=== PATIENT | male | born 1985 | race Caucasian/White ===

== ENCOUNTER 2023-11-18 21:35 | Inpatient (IN) | payer OTHER, SELFPAY ==
[2023-11-18 16:30] VITALS: BP 164/77
[2023-11-18] MEDS: TYLENOL 1000 MG PO (16:40)
[2023-11-18 16:48] LABS: % Basophils 0.4 % (0-2); % Eosinophils 0.1 % (0-6); % Immature Granulocytes 0.6 % (0-0.5); % Lymphocytes 9.5 % (20.5-51.1); % Monocytes 8.1 % (1.7-9.3); % Neutrophils 81.3 % (42.2-75.2); Absolute Basophils 0.1 10^3/uL (0-0.2); Absolute Immature Granulocytes 0.1 10^3/uL (0-0.05); Absolute Lymphocytes 1.6 10^3/uL (1.2-3.4); Absolute Monocytes 1.4 10^3/uL (0.1-0.6); Absolute Neutrophils 13.6 10^3/uL (1.4-6.5); Hematocrit 39.8 % (39.0-52.0); Hemoglobin 13.5 g/dL (13.0-18.0); Mean Corp Hgb Conc. 33.9 g/dL (33.0-37.0); Mean Corpuscular Hgb 29.8 pg (27.0-31.0); Mean Corpuscular Volume 87.9 fL (80.0-94.0); Mean Platelet Volume 9.5 fL (7.4-10.4); Nucleated Red Blood Cells % 0 % (-); Platelet Count 233 10^3/uL (130-400); Red Blood Cell Count 4.53 10^6/uL (4.70-6.10); Red Cell Dist. Width 13.1 % (11.5-14.5); White Blood Cell Count 16.7 10^3/uL (4.8-10.8)
[2023-11-18 17:03] LABS: ALT (SGPT) 22 U/L (0-50); AST (SGOT) 28 U/L (17-59); Alkaline Phosphatase 85 U/L (38-126); Blood Urea Nitrogen 13 mg/dl (9-20); Calcium 8.9 mg/dl (8.4-10.2); Carbon Dioxide 27 mmol/L (22-30); Chloride 98 mmol/L (98-107); Glucose 127 mg/dl (70-99); Potassium 3.9 mmol/L (3.5-5.1); Sodium 135 mmol/L (135-145); Total Protein 7.6 g/dl (6.3-8.2); eGFR > 60.00
--- NOTE | 2023-11-18 18:40 | ED.GENMED ---
History of Present Illness
General
Chief Complaint: Skin Problem
Source: patient and spouse
Time Seen by Provider: 11/18/23 18:20
Travel History
Have you had any contact with someone who has COVID-19?: No
Do you have any symptoms of coronavirus? Fever > 100 degrees, chills, cough, shortness of breath, sore throat, loss of taste or smell, muscle aches, or headache?: No
History of Present Illness
History of Present Illness:
This patient is a 38-year-old male presents emergency department with complaints of 'sinus pressure' that he noticed yesterday and just feeling a bit 'off'. When he woke up this morning, he noticed swelling and increasing sense of pressure in his
face particularly on the right side in the mid face extending to the periorbital area. Patient had a telehealth visit and was prescribed Augmentin, he took his first dose and is not due again for several hours. He reports feeling like he is not
getting better. He has fever, chills, sweats. He denies airway complaints such as trouble swallowing, sore throat, difficulty breathing. He also denies chest pain, abdominal pain, nausea, vomiting, dizziness, neck pain. Patient had a dental
cleaning several weeks ago, otherwise no dental intervention/work. He does have a bifrontal headache. He denies pain with eye movements or visual changes.
Past History
Past History
ED Past Medical History: None
ED Past Surgical History: None
Social History
Tobacco: Non-smoker
Alcohol: Occasional
Drug: None
Personal:
Living: with family
Employment: Employed
Phy Exam
Physical Exam
Physical Exam:
GENERAL: Alert , in no apparent distress
EYE: pupils equal and reactive, EOMI, no photophobia, no nystagmus.
NECK: Supple, no significant adenopathy.
ENT: o/p clr, mmm, no trismus/drool, no submental/lower face redness/swelling, no stridor.
CARDIAC: Regular rate and rhythm .
LUNGS: Clear breath sounds bilaterally, no acute respiratory distress, no wheezes/rales/rhonchi
ABDOMEN: Soft, without focal tenderness, no r/g, no cvat
NEUROLOGICAL: Alert and oriented, no focal neuro deficits
SKIN: Warm and dry, skin intact. THere is sts and redness, sl warmth noted at R midface and less so L midface extending to periorbital area and lower forehead on R. No proptoisis, no chemosis, no eye discharge
MUSCULOSKELETAL: No edema, well perfused.
PSYCH: Normal and appropriate interaction.
Course
Orders/Labs/Results
Orders:
Orders
11/18/23 16:38
Acetaminophen [Tylenol] 1,000 mg .ROUTE .STK-MED ONE
11/18/23 16:39
Complete Blood Count/With Diff Urgent
Comprehensive Metabolic Panel Urgent
11/18/23 16:40
Acetaminophen [Tylenol] 1,000 mg PO NOW STA
11/18/23 18:[address] [CT Orbits With Iv Contrast] Urgent
Comment:
Reason For Exam: periorbital cellulitis R
0.9% Sodium Chloride 500 ml [Nss] 500 ml IV BOLUS
11/18/23 19:54
Ketorolac [Toradol] 15 mg IV NOW STA
11/18/23 20:21
CefTRIAXone [Rocephin] 2,000 mg IV NOW STA
Vancomycin 1 Gram/200 ml [Vancocin] 1 gram in 200 ml IV NOW
Abnormal Lab Results
11/18/23
16:39
WBC 16.7 H 10^3/uL
(4.8-10.8)
RBC 4.53 L 10^6/uL
(4.70-6.10)
Abs Immat Gran (auto) 0.1 H 10^3/uL
(0-0.05)
Absolute Neuts (auto) 13.6 H 10^3/uL
(1.4-6.5)
Absolute Monos (auto) 1.4 H 10^3/uL
(0.1-0.6)
Immature Gran % 0.6 H %
(0-0.5)
Neutrophils % 81.3 H %
(42.2-75.2)
Lymphocytes % 9.5 L %
(20.5-51.1)
Glucose 127 H mg/dl
(70-99)
11/18/23 16:39
11/18/23 16:39
Vital Signs
Initial and Last Documented VS:
Initial Vital Signs
Temp Pulse Resp BP Pulse Ox
103 F H 117 18 164/77 97
11/18/23 16:30 11/18/23 16:30 11/18/23 16:30 11/18/23 16:30 11/18/23 16:30
Last Documented Vital Signs
Temp Pulse Resp BP Pulse Ox
103 F H 117 18 129/68 98
11/18/23 16:30 11/18/23 16:30 11/18/23 16:30 11/18/23 19:01 11/18/23 19:02
*Critical Care Note
Total Time (30-74mins, 75-104mins- exclusive of procedures): Not Applicable
Update Note
Update Note:
Patient presents to the Emergency Department with ___facial swelling
Number and Complexity of Problems Addressed at the Encounter
� Chronic conditions affecting care:
� Acute Exacerbation and/or Progression of Chronic Illness:
� Differential Diagnosis includes: But not limited to preseptal cellulitis, septal cellulitis, facial cellulitis, abscess, etc.
Amount and/or Complexity of Data to be Reviewed and Analyzed
� I performed an independent evaluation of and my interpretation is:
EKG:
CT: Preseptal cellulitis, no abscess noted
Xrays:
Laboratory Studies: White blood cell count elevation consistent with infection
Other:
� Review of other/old records reveals:
� Clinical information was obtained by an independent historian: who is bedside
� Prescriptions/Medications Considered but not given:
� Further testing considered but not performed:
Risk of Complications and/or Morbidity or Mortality of Patient Management
� Social determinants of health affecting care:
� Discussion with other providers (PCP, Hospitalists, Consultants, etc):
� Escalation of care including admission/observation vs risk of discharge considered: Case discussed with hospitalist via [place] text aware of diagnosis of preseptal cellulitis and indication for admission. 8:40 PM patient
reexamined, no progression of symptoms, feels better status post Toradol. Discussed with him finding and my recommendation for overnight observation and IV antibiotics which he agrees with. Patient is otherwise without complaint
ED Attending Note
-
Portions of this chart may have been created with voice recognition software.� Occasional wrong word or��sound alike� substitutions may have occurred due to the inherent limitations of voice recognition software.
Discharge Plan
Departure
Patient Disposition: Admit
Date of Disposition: 11/18/23
Time of Disposition: 20:45
Presentation/result/management discussed w/ accepting MD/DO: Hospitalist
Patient with high blood pressure during this ER visit?: Yes
Condition: Fair
Discharge Problem:
Preseptal cellulitis
Prescriptions:
No Action
ibuprofen 200 mg Capsule
400 mg PO Q6H PRN (Reason: mild pain/fever)
diphenhydramine HCl [Benadryl] 25 mg Capsule
50 mg PO DAILY PRN (Reason: swelling)
amoxicillin-pot clavulanate 875-125 mg tablet
1 tab PO BID
Referrals:
Gilbert Singh MD [Family Provider] -
Interventions
Interventions:
*Risk Screen - Suicide Last Done: 11/18/23 16:30
*General Assessment Last Done: 11/18/23 16:30
*Neglect/Abuse Screening Last Done: 11/18/23 16:30
ED- Fall Risk Assessment Last Done: 11/18/23 19:02
*ED COVID-19 Vaccine History Last Done: 11/18/23 19:02
ED-Skin Assessment Last Done: 11/18/23 19:02
[2023-11-18 19:01] VITALS: BP 129/68; BMI 39.2
[2023-11-18] MEDS: NSS 500 IV (19:14)
[2023-11-18] MEDS: TORADOL 15 MG IV (20:06)
[2023-11-18 20:09] VITALS: BP 117/78
[2023-11-18] MEDS: ROCEPHIN 2000 MG IV (20:30)
[2023-11-18] MEDS: VANCOCIN 200 IV ×2 (20:49→22:07)
--- NOTE | 2023-11-18 21:07 | HPS.HSE ---
Family Physician
-
Family Physician: Gilbert Singh
Chief Complaint
-
Facial redness
History of Present Illness
Patient is a pleasant 38 years old with no past medical history who came to the ER with facial pressure, redness, fever which started yesterday.
Patient found to have periorbital cellulitis.
He had a telehealth visit as outpatient and prescribed Augmentin.
Cellulitis was not improving and he came to the ER.
Patient seen and examined at bedside, denies any chest pain or shortness of breath, no abdominal pain, no nausea, no vomiting, no diarrhea or constipation.
Patient found to have elevated WBCs and fever in the ER, will be admitted under hospitalist service.
Medical History
Past Medical History
Past Medical History: Reports None
Past Surgical History: Reports None
Social History
Tobacco: Non-smoker
Alcohol: Occasional
Drug: None
Personal:
Living: With Family
Family History
Family History: Diabetes
Allergies / Home Medications
Allergies reflects when Allergies were last updated in [employer].
Home Medications with original date entered in [employer]
Allergy/Medication List:
Allergies
Allergy/AdvReac Type Severity Reaction Status Date / Time
No Known Allergies Allergy Verified 03/09/22 22:52
Home Medications
amoxicillin 875 mg-potassium clavulanate 125 mg tablet 1 tab PO BID 11/18/23
diphenhydramine HCl 25 mg capsule (Benadryl) 50 mg PO DAILY PRN swelling 11/18/23
ibuprofen 200 mg capsule 400 mg PO Q6H PRN mild pain/fever 11/18/23
Review of Systems
-
A 12 point ROS was completed and negative except as noted: Yes
Constitutional: Reports Fever; Denies Weight Gain, Weight Loss, Fatigue or Sleep Disturbance
EENT: Denies Tearing, Sore Throat, Mouth Pain, Mouth Swelling or Runny Nose
Respiratory: Denies Cough, Hemoptysis or Trouble Breathing
Cardiac: Denies Chest Pain, Diaphoresis, Palpitations or Syncope
Abdomen/GI: Denies Abdominal Pain, Nausea, Vomiting, Diarrhea, Constipated, Bloody Stools or Black Stools
: Denies Dysuria, Frequency, Flank Pain, Incontinence, Difficulty Voiding, Urgency, Bleeding or Dark Urine
Musculoskeletal: Denies Joint Pain, Joint Swelling, Muscle Pain, Muscle Stiffness or Edema
Skin: Reports Rash; Denies Itching
Neurological: Denies Dizzy, Headache, Weakness or Numbness
Endocrine: Denies Polyuria, Polydipsia or Temp Intolerance
Hematologic/Lymphatic: Denies Bleeding, Swollen Glands or Bruising
Psych: Reports Calm; Denies Depression, Anxiety or Panic Disorder
Physical Exam
Vital Signs
Vital Signs
Temp Pulse Resp BP Pulse Ox
103 F H 117 18 117/78 94
11/18/23 16:30 11/18/23 16:30 11/18/23 16:30 11/18/23 20:09 11/18/23 20:45
Physical Exam
General: Well Developed, Well Nourished, No Apparent Distress, Comfortable, Pain and Good Appetite; No Chills or Sweats
HEENT: NormoCephalic, Moist mucous membranes, Atraumatic, Good Dentition, PERRLA, Nose Appears Normal, Ears Appear Normal and Other (Redness periorbital area)
Respiratory: Clear
Cardiac: S1/S2 and Regular Rhythm
Breast: Deferred by me
GI: Soft, Non Tender, Non Distended and Normal Bowel Sounds
Genito-urinary: Deferred by me
Musculoskeletal: No Clubbing, No Cyanosis and No Edema
Skin: Warm, Rash and Other (Facial redness); No Jaundice, Ulcers, Lesions or Decubitus Ulcers
Neuro: Awake, Alert, Oriented, AO x 3, No Motor Deficits, Nonfocal/grossly intact and Cranial Nerves Intact
Hematologic/Lymphatic: No Lymphadenopathy
Psych: Calm
Laboratory Results
-
11/18/23 16:39
11/18/23 16:39
Laboratory Results
Total Bilirubin 1.0 mg/dl (0.2-1.3) 11/18/23 16:39
AST 28 U/L (17-59) 11/18/23 16:39
ALT 22 U/L (0-50) 11/18/23 16:39
Alkaline Phosphatase 85 U/L (38-126) 11/18/23 16:39
Data Reviewed
-
Diagnostic Radiology: Report Reviewed by me
CT Scan: Report Reviewed by me
Medical Tests (Nuc Med, Echo, EKG etc): Report Reviewed by me
Lab Data: Labs Reviewed by me
Old Records: Reviewed
Impression/Plan
-
IMPRESSION:
Pleasant 38 years old with no past medical history who presented with facial cellulitis started on vancomycin, consult infectious disease
PLAN:
Sepsis secondary to facial cellulitis
Patient meets sepsis criteria on admission
Heart rate 117
WBCs 16.7
Respiratory rate 18
Temperature 103
Source of infection is facial cellulitis
Patient failed outpatient antibiotic treatment with Augmentin triggers ER visit
Will start IV fluid with normal saline
Patient received vancomycin in the ER will continue vancomycin
Blood culture pending.
Consult infectious disease.
Hyperglycemia, rule out diabetes
Family history of diabetes
Hemoglobin A1c
Obesity BMI 39.1
Lifestyle modification
CODE STATUS: Full code
DVT prophylaxis: Lovenox
Diet: Regular diet
--- NOTE | 2023-11-18 21:28 | PHA.VAN.IN ---
Assessment
- Assessment
Renal Function: Appears similar to baseline
Concomitant Antimicrobials: NONE
- Previous Dosing Experience
Previous Regimen: NONE
AUC Dosing Plan
- Dosing Variables
Dosing Weight (kg): 127.3
Dosing CrCl (ml/min): 125
Vd coefficient (L/kg): 0.6
- Empiric Dosing
Initial / Loading Dose: 2GM
Maintenance Regimen: 1250MG IV Q8H
Estimated AUC (mcg*h/mL): 491
Estimated Peak (mcg*h/mL): 28.3
Estimated Trough (mcg/ml): 14.0
Estimated Half Life (H): 6.4
Pharmacokinetics Vancomycin I
- -
Patient Age: 38
Patient Sex: Male
Vancomycin Day #: 1
Indication: Skin And Soft Tissue (KATY-ORBITAL CELLULITIS/SEPSIS)
Requesting Provider: ELDON
Height / Weight:
Height 5 ft 11 in
Actual Weight 127.3 kg
Pertinent Past Medical History: FAILED OUPT TX W/AUGMENTIN
- Vital Signs / Lab Results
Temp Pulse Resp BP Pulse Ox
103 F H 117 18 117/78 94
11/18/23 16:30 11/18/23 16:30 11/18/23 16:30 11/18/23 20:09 11/18/23 20:45
Lab Results - Hematology
11/18/23
16:39
WBC 16.7 H
Lab Results - Chemistry
11/18/23
16:39
BUN 13
Creatinine 1.1
Albumin 4.0
[2023-11-18] MEDS: NSS 1000 IV (22:08)
--- NOTE | 2023-11-18 22:31 | PTCARENOTE ---
Patient arrived from ED via stretcher to 324, ambulated from stretcher to bed independently without difficulty. Patient states facial redness/swelling is worse now than when he came to ED, especially to right eye. Patient states he has sinus issues
at baseline, but no other issues/illnesses prior to start of symptoms. Patient was seen by PCP, given abx treatment for cellulitis to face with no improvement prior to admission. Fever present at home. Tmax on admission 103F. IVFs and IV vanco
currently running from ED, will maintain per MD orders. Call shelley within reach and instructed on use. Will monitor.
[2023-11-18 22:40] VITALS: BP 120/80; BMI 39.1
[2023-11-19] MEDS: TORADOL 30 MG IV (04:01)
[2023-11-19] MEDS: BENADRYL 50 MG PO ×2 (04:26→20:56)
[2023-11-19] MEDS: VANCOCIN 275 MG IV ×3 (05:43→22:19)
[2023-11-19 07:30] VITALS: BP 132/78
[2023-11-19 07:40] LABS: Mean Corp Hgb Conc. 33.3 g/dL (33.0-37.0); Mean Corpuscular Hgb 29.9 pg (27.0-31.0); Mean Corpuscular Volume 89.7 fL (80.0-94.0); Platelet Count 195 10^3/uL (130-400); Red Blood Cell Count 4.35 10^6/uL (4.70-6.10); Red Cell Dist. Width 13.2 % (11.5-14.5); White Blood Cell Count 11.6 10^3/uL (4.8-10.8)
[2023-11-19] MEDS: NSS 1000 IV (09:14)
[2023-11-19 09:23] LABS: Blood Urea Nitrogen 10 mg/dl (9-20); Calcium 8.1 mg/dl (8.4-10.2); Carbon Dioxide 27 mmol/L (22-30); Chloride 103 mmol/L (98-107); Estimated Creatinine Clearance > 125 ml/min; Glucose 100 mg/dl (70-99); Potassium 3.4 mmol/L (3.5-5.1); Sodium 139 mmol/L (135-145); eGFR > 60.00
--- NOTE | 2023-11-19 09:54 | PHA.VAN.FU ---
Vancomycin Assessment / Plan
- Assessment
Renal Function: SCR Decreasing
WBC's are: Trending Down
In the past 24 hrs, patient has been: Febrile (Tmax 103)
- Dosing Plan
Continue: Vanc 1250mg IV Q8H
- Monitoring Plan
Peak Level: 3/3 at 0100
Trough Level: 3/3 at 0530
- Follow Up
Pharmacy will continue to follow.
Vancomycin Follow UP
- -
Patient Age: 38
Patient Sex: Male
Vancomycin Day #: 2
Indication: Skin And Soft Tissue (KATY-ORBITAL CELLULITIS/SEPSIS)
Requesting Provider: ELDON
Height / Weight:
Height 5 ft 11 in
Actual Weight 127.034 kg
Pertinent Past Medical History: FAILED OUPT TX W/AUGMENTIN
- Vital Signs / Lab Results
Temp Pulse Resp BP Pulse Ox
97.4 F 79 16 132/78 97
11/19/23 07:30 11/19/23 07:30 11/19/23 07:30 11/19/23 07:30 11/19/23 07:30
Lab Results - Hematology
11/18/23 11/19/23
16:39 06:46
WBC 16.7 H 11.6 H
Lab Results - Chemistry
11/18/23 11/19/23
16:39 06:46
BUN 13 10
Creatinine 1.1 0.8
Estimated Creat Clear > 125
Albumin 4.0
[2023-11-19] MEDS: TYLENOL 650 MG PO ×2 (10:46→22:20)
[2023-11-19 11:41] LABS: Glycohemoglobin (HgbA1c) 5.8 % (4.0-5.6)
--- NOTE | 2023-11-19 12:13 | W.PN.HOSP.TC ---
Today's Communication/Plan
-
see outlined plan
Assessment / Plan
Assessment / Plan
Assessment:
Sepsis POA
Facial periorbital cellulitis
- received 1 dose Augmentin but symptoms progressed
- continue IV Vancomycin for MRSA coverage
- start IV Ancef
- follow cultures, clinical improvement with exam (areas were marked)
- ID Consulted
Hypokalemia
- replete orally
Pre-diabetes
Obesity due to excess calories
- OP f/u
DVT ppx: Lovenox
Code: Full
Anticipated Discharge: 24 - 48 hours
Subjective/Interval History
-
Date of Service: November 19, 2023
no eye pain, no vision changes
provided serial pictures showing progression of cellulitis
Objective Data
-
Labs:
Laboratory Results
11/19/23
06:46
WBC 11.6 H
Hgb 13.0
Hct 39.0
Plt Count 195
Sodium 139
Potassium 3.4 L
Chloride 103
Carbon Dioxide 27
BUN 10
Creatinine 0.8
Glucose 100 H
Calcium 8.1 L
Vital Signs:
Vital Signs
Temp Pulse Resp BP Pulse Ox
97.4 F 79 16 132/78 97
11/19/23 07:30 11/19/23 07:30 11/19/23 07:30 11/19/23 07:30 11/19/23 07:30
I&O
11/18/23 11/19/23 11/20/23
06:59 06:59 06:59
Intake Total 1475 / 1475
Balance 1475 / 1475
Physical Exam
-
General: No Apparent Distress
HEENT: Normocephalic and Atraumatic
Respiratory: Negative Wheezes or Rales
Cardiac: Regular Rhythm and S1/S2
GI: Soft
Genito-urinary: No Costovertebral Tender
Neuro: AO x 3
Psych: Calm
Data Reviewed
-
Total Time Spent with Patient (in minutes): 42
Labs: Labs Reviewed by me
--- NOTE | 2023-11-19 12:24 | CON.ID ---
Consultation
-
Date/Time Consultation Requested: 11/18/2023, 2225
Date/Time Consultation Performed: 11/19/2023, 1230
Requesting Provider: Dr. Caty Hagan
Performing Provider: Dr. Avelina Motley
Reason for Consultation: oeri-orbital cellulitis
Chief Complaint / Past History
Chief Complaint
Swelling and redness of face
History of Present Illness
38 year old male without past medical history who woke up yesterday morning and noted swelling and redness around both eyes extending down to cheeks. + fever and chills. He called his PCP who prescribed Augmentin which he took 1 dose. However,
swelling, redness, and pressure got worse. He came to the ED last night. T =103. WBC 16.7. He was started on Vancomycin and ceftriaxone. Per , redness appear worse today. Pt reports sinus pressure. Has mild frontal [place]. No tooth pain. No
injury. He shaved his head with electric shaver last Tuesday after playing hockey. no trauma during hockey. He wore cage helmet. No one else in family with similar condition.
Past History
Additional Past Medical History:
None
Allergy History:
No Known Allergies Allergy (Verified 03/09/22 22:52)
Medications Reviewed: Yes
Current Antibiotics:
Vancomycin
Ceftriaxone -> cefazolin
Social History
Tobacco: Non-Smoker
Alcohol: None
Drug: None
Personal:
Employment: Employed (Works in retail and landscape.)
Family History
Family History: Not Pertinent
Review of Systems
Review of Systems
General: Fever and Chills; Negative Change in Appetite
HEENT: Negative Pharyngitis
Respiratory: Cough; Negative Dyspnea or Sputum Production
Gasteroenterology: Other (no diarrhea); Negative Nausea or Vomiting
Genital / Urological: Dysuria and Flank Pain
Endocrine: Weakness
Neurological: Negative Dizziness
All systems: All other systems were reviewed and were negative
Vital Signs
Temp Pulse Resp BP Pulse Ox
97.4 F 79 16 132/78 97
11/19/23 07:30 11/19/23 07:30 11/19/23 07:30 11/19/23 07:30 11/19/23 07:30
Selected Entries
11/18/23
16:30
Temp 103 F H
Physical Exam
Physical Exam
Constitutional: Obese
Head: Other (Well demarcated bright erythema from both maria del carmen-orbital to bilateral malar and nose. + edema. + bilateral maxillary sinus tenderness. )
Eyes: Pupils Equal, Pupils Round, No Conjunctival Hemorrhage and Sclera Anicteric
Pharynx: Benign
Cardiovascular: Regular Rate and S1/S2
Gastrointestinal: Soft, Non Tender and Non Distended
Genito-Urinary: Negative CVA Tenderness
Extremities: Negative Edema
Neurological: AO x 3
Lab / Diagnostic Study Results
11/19/23 06:46
11/19/23 06:46
Abs Immat Gran (auto) 0.1 10^3/uL (0-0.05) H 11/18/23 16:39
Absolute Neuts (auto) 13.6 10^3/uL (1.4-6.5) H 11/18/23 16:39
Absolute Lymphs (auto) 1.6 10^3/uL (1.2-3.4) 11/18/23 16:39
Absolute Monos (auto) 1.4 10^3/uL (0.1-0.6) H 11/18/23 16:39
Absolute Basos (auto) 0.1 10^3/uL (0-0.2) 11/18/23 16:39
Immature Gran % 0.6 % (0-0.5) H 11/18/23 16:39
Neutrophils % 81.3 % (42.2-75.2) H 11/18/23 16:39
Lymphocytes % 9.5 % (20.5-51.1) L 11/18/23 16:39
Monocytes % 8.1 % (1.7-9.3) 11/18/23 16:39
Eosinophils % 0.1 % (0-6) 11/18/23 16:39
Basophils % 0.4 % (0-2) 11/18/23 16:39
Microbiology Results
Micro:
11/18/23 22:49 Blood Culture - Pending
Blood/Venous
11/18/23 22:49 Blood Culture - Pending
Blood/Venous
11/18/23 CT orbit: CT findings suggesting periorbital cellulitis, right greater than left. No evidence for intraorbital involvement. No evidence for collection to suggest an abscess
Assessment / Plan
# Bilateral preseptal/facial cellulitis,severe
# Sepsis with fever and leukocytosis.
-Can continue Vancomycin.
- Replace ceftriaxone with Unasyn.
-Follow blood cx's.
-Follow temps and WBC.
Care Review
Plan reviewed with: Physician (Dr. Hagan)
[2023-11-19] MEDS: KCL 40 MEQ PO (12:32)
[2023-11-19] MEDS: UNASYN IV ×2 (13:20→20:26)
--- NOTE | 2023-11-19 15:48 | CM ---
Chart reviewed. Spoke with pt and at bedside
Pt lives in 2 story home with and sons
Independent, working, drives
Denies DME, past Home health/SNF
Has ride at discharge
PCP - Dr Janis Singh
Pharm - [facility]
Plan - anticipate home no needs
[2023-11-19 15:55] VITALS: BP 129/70
[2023-11-19] MEDS: LOVENOX 40 MG SC (17:45)
--- NOTE | 2023-11-19 21:41 | PTCARENOTE ---
Patient c/o increased itching and swelling to right eye worse than left at this time -- PRN Benadryl ordered daily and unable to give until after 0400am 11/19. JOYCE Gaviria notified and Benadryl frequency changed to Q6 hour PRN. Dose obtained and
provided to patient -- see NOV. Ice pack requested by patient and also provided for comfort. Maintained with IV abx at this time, IVFs DCd earlier today. Call shelley within reach, will monitor.
[2023-11-19 23:45] VITALS: BP 135/85
[2023-11-20] MEDS: UNASYN IV ×3 (01:07→14:26)
[2023-11-20 02:10] LABS: Vancomycin Peak 20.7 ug/ml (18-26)
[2023-11-20 06:27] LABS: % Basophils 0.5 % (0-2); % Eosinophils 3.1 % (0-6); % Immature Granulocytes 0.4 % (0-0.5); % Lymphocytes 21.6 % (20.5-51.1); % Monocytes 8.5 % (1.7-9.3); % Neutrophils 65.9 % (42.2-75.2); Absolute Eosinophils 0.3 10^3/uL (0-0.7); Absolute Lymphocytes 1.8 10^3/uL (1.2-3.4); Absolute Monocytes 0.7 10^3/uL (0.1-0.6); Absolute Neutrophils 5.6 10^3/uL (1.4-6.5); Hematocrit 39.8 % (39.0-52.0); Hemoglobin 13.3 g/dL (13.0-18.0); Mean Corp Hgb Conc. 33.4 g/dL (33.0-37.0); Mean Corpuscular Hgb 29.8 pg (27.0-31.0); Mean Platelet Volume 9.8 fL (7.4-10.4); Nucleated Red Blood Cells % 0 % (-); Platelet Count 191 10^3/uL (130-400); Red Blood Cell Count 4.47 10^6/uL (4.70-6.10); Red Cell Dist. Width 13.1 % (11.5-14.5); White Blood Cell Count 8.5 10^3/uL (4.8-10.8)
[2023-11-20 06:50] LABS: Blood Urea Nitrogen 7 mg/dl (9-20); Calcium 8.6 mg/dl (8.4-10.2); Carbon Dioxide 28 mmol/L (22-30); Chloride 104 mmol/L (98-107); Estimated Creatinine Clearance > 125 ml/min; Glucose 99 mg/dl (70-99); Potassium 3.9 mmol/L (3.5-5.1); Sodium 141 mmol/L (135-145); Vancomycin Trough 11.5 ug/ml (5-20); eGFR > 60.00
[2023-11-20] MEDS: VANCOCIN 275 MG IV ×2 (07:29→12:58)
[2023-11-20 07:35] VITALS: BP 139/91
--- NOTE | 2023-11-20 07:39 | PHA.VAN.FU ---
Vancomycin Assessment / Plan
- Assessment
Renal Function: Stable
WBC's are: Trending Down
In the past 24 hrs, patient has been: Afebrile
Concomitant Antimicrobials: Ampicillin-sulbactam
- Assessment - Therapeutic Drug Monitoring
Extrapolated Cmax (mcg/mL): 26.3
Peak level was drawn: Appropriately
Extrapolated Cmin (mcg/mL): 11.1
Trough Drawn: Appropriately
Levels were drawn: At steady state
Calculated AUC (mcg*h/mL): 428
Calculated ke: 0.1326
Calculated half life (H): 5.2
Calculated Vd (L): 65.98
Calculated Vanc CL (ml/min): 145.79
- Dosing Plan
Continue: Vanc 1250mg IV Q8H
- Monitoring Plan
Level(s) appropriate: Recheck trough at minimum of weekly intervals, Repeat sooner for changes in renal function or clinical status
- Follow Up
Pharmacy will continue to follow.
Vancomycin Follow UP
- -
Patient Age: 38
Patient Sex: Male
Vancomycin Day #: 3
Indication: Skin And Soft Tissue (KATY-ORBITAL CELLULITIS/SEPSIS)
Requesting Provider: ELDON
Height / Weight:
Height 5 ft 11 in
Actual Weight 127.034 kg
Pertinent Past Medical History: FAILED OUPT TX W/AUGMENTIN
- Vital Signs / Lab Results
Temp Pulse Resp BP Pulse Ox
98.7 F 87 18 139/91 98
11/20/23 07:35 11/20/23 07:35 11/20/23 07:35 11/20/23 07:35 11/20/23 07:35
Lab Results - Hematology
11/18/23 11/19/23 11/20/23
16:39 06:46 06:04
WBC 16.7 H 11.6 H 8.5
Lab Results - Chemistry
11/18/23 11/19/23 11/20/23
16:39 06:46 06:03
BUN 13 10 7 L
Creatinine 1.1 0.8 0.8
Estimated Creat Clear > 125 > 125
Albumin 4.0
Microbiology Results
11/18/23 22:49 Blood Culture - Preliminary
Blood/Venous No Growth in 24 hours- Final report to follow
11/18/23 22:49 Blood Culture - Preliminary
Blood/Venous No Growth in 24 hours- Final report to follow
Therapeutic Drug Monitoring
Vancomycin Peak 20.7 ug/ml (18-26) 11/20/23 01:37
Vancomycin Trough 11.5 ug/ml (5-20) 11/20/23 06:03
--- NOTE | 2023-11-20 12:08 | W.PN.ID1 ---
Date of Service
Date of Service: November 20, 2023
Today's Communication
can dc home to po doxy and augmentin. See below.
Assessment / Plan
# Bilateral preseptal/facial cellulitis,severe - improving
# Sepsis with fever and leukocytosis - resolved
- Can transition Vancomycin and Unasyn to doxycyline 100mg po bid plus Augmentin 875mg po bid x 9 more days.
- blood cx's neg to date.
Chief Complaint
-: Cellulitis
Subjective / Review of Systems
Face much better.
Vital Signs / Physical Exam
Vital Signs
Vital Signs
Temp Pulse Resp BP Pulse Ox
98.7 F 87 18 139/91 98
11/20/23 07:35 11/20/23 07:35 11/20/23 07:35 11/20/23 07:35 11/20/23 07:35
Physical Exam
Constitutional: No Acute Distress and Comfortable
Head: Other (Facial erythema/induration decreased)
Eyes: No Conjunctival Hemorrhage and Sclera Anicteric
Objective Data
Lab Data
Lab Results
11/20/23 06:04
11/20/23 06:03
Estimated Creat Clear > 125 ml/min 11/20/23 06:03
Total Bilirubin 1.0 mg/dl (0.2-1.3) 11/18/23 16:39
AST 28 U/L (17-59) 11/18/23 16:39
ALT 22 U/L (0-50) 11/18/23 16:39
Alkaline Phosphatase 85 U/L (38-126) 11/18/23 16:39
Most recent labs reviewed.
Micro Results:
11/18/23 22:49 Blood Culture - Preliminary
Blood/Venous No Growth in 24 hours- Final report to follow
11/18/23 22:49 Blood Culture - Preliminary
Blood/Venous No Growth in 24 hours- Final report to follow
11/18/23 CT orbit: CT findings suggesting periorbital cellulitis, right greater than left. No evidence for intraorbital involvement. No evidence for collection to suggest an abscess
Care Review
Plan reviewed with: Physician (Dr. Hagan)
--- NOTE | 2023-11-20 12:52 | W.PN.HOSP.TC ---
Today's Communication/Plan
-
dc home
Assessment / Plan
Assessment / Plan
Assessment:
Sepsis POA
Facial periorbital cellulitis
- dc home on Augmentin - pt has supply
- also doxy 100mg BID x 10 days
- appreciate ID help
- PCP f/u in 1 week
Hypokalemia
- replete orally
Pre-diabetes
Obesity due to excess calories
- OP f/u
DVT ppx: Lovenox
Code: Full
More than 30 minutes spent in discharge including
Final examination of the patient
Summarizing hospital stay
Instructions for continuing care to all relevant caregivers
Preparation of discharge records, prescriptions, and referral forms
Total time spent (in minutes): 41
Anticipated Discharge: Today
Subjective/Interval History
-
Date of Service: November 20, 2023
denies any new complaints
reports redness, swelling much improving
Objective Data
-
Labs:
Laboratory Results
11/20/23 11/20/23
06:03 06:04
WBC 8.5
Hgb 13.3
Hct 39.8
Plt Count 191
Sodium 141
Potassium 3.9
Chloride 104
Carbon Dioxide 28
BUN 7 L
Creatinine 0.8
Glucose 99
Calcium 8.6
Vital Signs:
Vital Signs
Temp Pulse Resp BP Pulse Ox
98.7 F 87 18 139/91 98
11/20/23 07:35 11/20/23 07:35 11/20/23 07:35 11/20/23 07:35 11/20/23 07:35
I&O
11/19/23 11/20/23 11/21/23
06:59 06:59 06:59
Intake Total 1475 / 1475 1945 / 1945
Balance 1474
Physical Exam
-
General: No Apparent Distress
HEENT: Other (facial redness and swelling decreased)
Respiratory: Negative Wheezes or Rales
Cardiac: Regular Rhythm and S1/S2
GI: Soft and Nontender
Musculoskeletal: No Edema
Neuro: AO x 3
Hematologic / Lymphatic: No Lymphadenopathy
Psych: Calm
Data Reviewed
-
Total Time Spent with Patient (in minutes): 41
Labs: Labs Reviewed by me
--- NOTE | 2023-11-20 12:56 | W.DS.TRANS ---
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
-
Discharge Instructions:
Discharge Diagnosis/Procedures periorbital cellulitis
Diet Regular
Activity As tolerated
Bathing Restrictions None
Instructions:
Stand-Alone Forms:
Changes to Home Medications: No
Discharge Medications:
DC Medications w/original date entered in [employer]
amoxicillin 875 mg-potassium clavulanate 125 mg tablet 1 tab PO BID 11/18/23
diphenhydramine HCl 25 mg capsule (Benadryl) 50 mg PO DAILY PRN swelling 11/18/23
ibuprofen 200 mg capsule 400 mg PO Q6H PRN mild pain/fever 11/18/23
doxycycline monohydrate 100 mg capsule 100 mg PO BID #20 caps 11/20/23
Home Medication Changes
Pending Results: No
Total time spent discharging patient (in min): 42
== END 2023-11-20 15:40 | disposition home or self-care (01) | DRG 872 ==
LOC: 3 WEST ACU 21:35
PROVIDERS: Emergency Medicine; ADMITTING PHYSICIAN General Practice; ATTENDING PHYSICIAN Internal Medicine; CONSULT PHYSICIAN Internal Medicine Infectious Disease; EMERGENCY PHYSICIAN Emergency Medicine; FAMILY PHYSICIAN Family Medicine
DX: A41.9 Sepsis, unspecified organism (principal); L03.213 Periorbital cellulitis; E66.09 Other obesity due to excess calories; E87.6 Hypokalemia; R73.03 Prediabetes; Z83.3 Family history of diabetes mellitus; Z68.39 Body mass index [BMI] 39.0-39.9, adult
CPT/HCPCS: 70481; 80048; 80053; 80202; 83036; 85025; 85027; 87040; 96361; 96365; 96375; 99285; Q9967

== ENCOUNTER → 2024-08-24 11:57 | Outpatient (REF) | payer OTHER, SELFPAY | LOC: DHSLP 11:57 | PROVIDERS: ATTENDING PHYSICIAN Physician Assistant Medical | DX: G47.33 Obstructive sleep apnea (adult) (pediatric) (principal) | CPT/HCPCS: 95800 ==